=== PATIENT | male | born 1990 | race Caucasian/White ===

== ENCOUNTER 2020-12-24 19:00 | Emergency (ER) | payer OTHER ==
[2020-12-24] MEDS ORDERED: IBUPROFEN800 MG PO (21:11)
== END 2020-12-24 21:30 | disposition home or self-care (01) ==
LOC: FER 19:00
DX: K08.89 Other specified disorders of teeth and supporting structures (principal); K02.9 Dental caries, unspecified; F17.210 Nicotine dependence, cigarettes, uncomplicated
CPT/HCPCS: J0561